=== PATIENT | female | born 1955 | race Caucasian/White ===

== ENCOUNTER → 2018-09-20 | Day surgery (SDC) | payer OTHER ==
[~2018-09-20] VITALS: Ht 160 cm; Wt 63.5 kg
[~2018-09-20] MED LIST: AUGMENTIN 875875 MG PO; FLEXERIL5 MG PO; IRON PO; MOTRIN800 MG PO; SYNTHROID,LEV175 MCG PO; VICODIN 5/500 505 MG PO; VITAMIN C PO; VITAMIN D PO
--- NOTE | ~2018-09-20 | O ---
[place], [place] OPERATIVE NOTE NAME: ABHIJIT OLIVARES UNIT #: [id number] ROOM: DOCTOR: GHANSHYAM RECINOS MD BIRTHDATE: [birth year] DOS: 09/20/2018 PREOPERATIVE DIAGNOSIS: Cataract, left eye. POSTOPERATIVE DIAGNOSIS: Cataract, left eye. OPERATION: Extracapsular cataract extraction by phacoemulsification with posterior chamber intraocular lens implantation, left eye. ANESTHESIA: Monitored standby. OPERATIVE FINDINGS AND PROCEDURE: 2% Xylocaine topical anesthetic gel was applied to the eye in the preop area. The patient was taken to the operating room and prepped and draped in the standard fashion for sterile intraocular surgery. A time out procedure was performed verifying correct patient, correct site and corrects lens with Pratibha Recinos M.D. The operating microscope was swung into position and the lid speculum was inserted. Using a 15-degree angulated super blade, a paracentesis was made through clear cornea. Air was instilled into the anterior chamber followed by the instillation of Trypan blue which was painted on the anterior capsule. Viscoelastic was used to fill the anterior chamber. Using a metal keratome a 2.4 mm self-sealing clear corneal cataract incision was made temporally at the limbus. Using a pre-bent 25 gauge cystotome needle, a standard continuous curvilinear capsulorrhexis was performed. The anterior capsule was removed with forceps. The lens nucleus was hydrodissected and phacoemulsified in the posterior chamber. Cortical material was removed with the irrigation aspiration hand piece and the posterior capsule was then polished with a curet under irrigation. The posterior chamber and capsular bag were filled with viscoelastic. A posterior chamber intraocular lens manufactured by: [employer], Model [id number] and 19.0 diopters in strength were then inserted into the posterior chamber and within the capsular bag using the lens cartridge and injector system. Viscoelastic was removed using the irrigation aspiration handpiece. The anterior chamber was filled with balanced salt solution through the paracentesis. Both the paracentesis site and cataract incisions were hydrated with BSS and verified to be water-tight and self-sealing. Cefuroxime 1 mg/0.1 mL was injected into the anterior chamber through the paracentesis site. The incision checked to be water-tight using a Weck-Janis sponge. The integrity of the cataract wound and ocular tension were checked. Lid speculum and drapes were removed. The patient was transferred from the operating room to the recovery room in satisfactory condition. [place], [place] OPERATIVE NOTE NAME: ABHIJIT OLIVARES UNIT #: [id number] ROOM: DOCTOR: GHANSHYAM RECINOS MD BIRTHDATE: [birth year] GHANSHYAM RECINOS MD CM:OPRECORD:OPERATIVE NOTE 1133 1202 GHANSHYAM RECINOS MD 09/20/18 1202 interface
[2018-09-20 10:15] VITALS: BP 119/56
[2018-09-20 11:30] VITALS: BP 146/78
[2018-09-20 11:45] VITALS: BP 159/82
[2018-09-20 12:00] VITALS: BP 132/82
== END | disposition home or self-care (01) ==
LOC: SDC 09-15 11:00
DX: H25.812 Combined forms of age-related cataract, left eye (principal); M19.90 Unspecified osteoarthritis, unspecified site; Z79.1 Long term (current) use of non-steroidal anti-inflammatories (NSAID); Z79.899 Other long term (current) drug therapy; Z98.41 Cataract extraction status, right eye; Z96.1 Presence of intraocular lens; Z98.890 Other specified postprocedural states

== ENCOUNTER → 2019-12-24 | Outpatient (CLI) | payer OTHER | END | disposition home or self-care (01) | LOC: MAMMO 12:59 | DX: Z12.31 Encounter for screening mammogram for malignant neoplasm of breast (principal) ==

== ENCOUNTER → 2022-01-19 | Outpatient (CLI) | payer MEDICARE | END | disposition home or self-care (01) | LOC: RAD 11:16 | PROVIDERS: ATTEND Physician Assistant | DX: M16.12 Unilateral primary osteoarthritis, left hip (principal); M25.752 Osteophyte, left hip; M51.36 Other intervertebral disc degeneration, lumbar region ==

== ENCOUNTER → 2022-02-05 | Outpatient (CLI) | payer MEDICARE ==
[2022-02-05 11:30] LABS: MEAN CELL VOLUME 88.9 fl (81.0-99.0); MEAN CORPUSCULAR HGB 29.6 pg (27.0-31.0); MEAN CORPUSCULAR HGB CONC 33.3 g/dl (33.0-37.0); MEAN PLATELET VOLUME 8.8 fl (9.6-12.3); RED BLOOD COUNT 4.5 10*6/uL (4.10-5.10); RED CELL DISTRI WIDTH 13.6 % (0-14.5); WHITE BLOOD COUNT 5.5 10*3/uL (4.8-10.8)
[2022-02-05 11:48] LABS: ALKALINE PHOSPHATASE 65 U/L (45-117); BUN 11 mg/dl (7-24); CHLORIDE 109 mmol/L (98-107); CHOLESTEROL 246 mg/dL (<200); CREATININE 0.73 mg/dL (0.55-1.02); LDL CHOLESTEROL 158 mg/dL (9-159); POTASSIUM 3.6 mmol/L (3.5-5.1); SGOT/AST 21 IU/L (3-35); SGPT/ALT 37 U/L (12-78); SODIUM 142 mmol/L (136-145); TOTAL PROTEIN 7.5 gm/dL (6.4-8.2); TRIGLYCERIDES 163 mg/dl (<150)
== END | disposition home or self-care (01) ==
LOC: LAB 11:15
PROVIDERS: ATTEND Physician Assistant
DX: F51.01 Primary insomnia (principal); E03.9 Hypothyroidism, unspecified; K59.00 Constipation, unspecified; E78.00 Pure hypercholesterolemia, unspecified; M54.42 Lumbago with sciatica, left side; M25.552 Pain in left hip; Z78.0 Asymptomatic menopausal state

== ENCOUNTER → 2022-03-03 | Outpatient (CLI) | payer MEDICARE | LOC: MAMMO 02-11 14:00 | PROVIDERS: ATTEND Physician Assistant | DX: Z12.31 Encounter for screening mammogram for malignant neoplasm of breast (principal); N64.89 Other specified disorders of breast ==

== ENCOUNTER → 2022-03-10 | Outpatient (CLI) | payer MEDICARE | END | disposition home or self-care (01) | LOC: MRI 01:23 | PROVIDERS: ATTEND Physician Assistant | DX: M47.816 Spondylosis without myelopathy or radiculopathy, lumbar region (principal); M51.27 Other intervertebral disc displacement, lumbosacral region; M48.07 Spinal stenosis, lumbosacral region ==